=== PATIENT | male | born 1965 | race Two or more races ===

== ENCOUNTER 2017-06-03 12:42 | Day surgery (SDC) | payer BC ==
[2017-05-29 17:48] VITALS: BMI 29.8
[~2017-06-03 12:42] MED LIST: LACTATED RINGERS 1,000 ML IV SCH
[2017-06-03 13:06] VITALS: RESP 16; TEMP 98.1
[2017-06-03] MEDS ORDERED: LIDOCAINE 1% 20 ML VIAL (10MG/ML) FOR IV START INTRADERMA ONE (13:16)
[2017-06-03] MEDS ORDERED: LIDOCAINE 1% INJ 10MG/ML (20 ML MDV) ONE (14:09)
[2017-06-03] MEDS ORDERED: PROPOFOL 10 MG/ML 20 ML VIAL IV ONE (14:09)
--- NOTE | 2017-06-03 14:38 | P.PCN ---
Date of Procedure: 06/03/17 Procedure(s) Performed: Procedure: Total colonoscopy. Preoperative diagnosis: Screening for neoplasia. Postoperative diagnosis: Sigmoid diverticulosis with no evidence of acute diverticulitis, strictures, polyps or cancer. Preparation: HalfLytely prep. Sedation: Was provided by anesthesia. Brief clinical history: The patient is a 51-year-old male who is referred for this evaluation for screening for neoplasia age being his risk factor. There is family history of colon cancer in a grandparent who was diagnosed in their 90s but no first-degree relative with colon cancer. The patient has no abdominal pains, bleeding or anemia. This would be his first colonoscopy. Procedure: With the patient on his left lateral decubitus position and after informed consent and adequate sedation, the perianal area was inspected and it did not show any fissures or fistulas. There were no masses felt on digital rectal examination. The Olympus CFQ 160L video colonoscope was then inserted in the rectum in the usual fashion and advanced to the cecum. The preparation was less than ideal and there was still some thick fecal secretions and fecal debris that I spent some time washing. There were several diverticular orifices seen scattered in the sigmoid but there was no evidence of acute diverticulitis or strictures. No polyps or tumors were seen. I retroflexed the endoscope in the rectum before the endoscope was withdrawn. The patient tolerated the procedure well. Plan: The patient was reassured. Discussed dietary measures. With his less than ideal preparation and the family history of colon cancer in a grandparent, I suggested repeat exam in 5 years before going to a 10-year schedule.
[2017-06-03 15:01] VITALS: BP 150/91; PULSE 78
== END 2017-06-03 15:30 | disposition home or self-care (01) ==
LOC: ORWHC2ENDO 12:42
DX: Z12.11 Encounter for screening for malignant neoplasm of colon (principal); K57.30 Diverticulosis of large intestine without perforation or abscess without bleeding; J45.909 Unspecified asthma, uncomplicated; Z88.6 Allergy status to analgesic agent; Z88.8 Allergy status to other drugs, medicaments and biological substances; Z91.011 Allergy to milk products; Z79.1 Long term (current) use of non-steroidal anti-inflammatories (NSAID); Z79.51 Long term (current) use of inhaled steroids; Z79.899 Other long term (current) drug therapy
CPT/HCPCS: J2001; J2704; G0121; 45378

== ENCOUNTER → 2019-08-18 | Outpatient (CLI) | payer BC ==
--- NOTE | 2019-08-18 15:15 | XR ---
EXAMINATION TYPE: XR shoulder complete LT DATE OF EXAM: 08/18/2019 COMPARISON: NONE HISTORY: 53-year-old male left shoulder pain TECHNIQUE: 3 views FINDINGS: AC joint appears congruent. Subacromial space is preserved. No tendinous or bursal calcific ations. No acute fracture, subluxation, or dislocation. Some limitations due to large patient body bess bitus. IMPRESSION: No acute osseous abnormality seen.
== END | disposition home or self-care (01) ==
LOC: RADXRYALE 12:37
PROVIDERS: ATTEND Internal Medicine
DX: M25.512 Pain in left shoulder (principal)